=== PATIENT | male | born 1950 | race Caucasian/White ===

== ENCOUNTER 2017-01-22 10:18 | Observation (INO) ==
[2017-01-22] MEDS ORDERED: *HR* Heparin 5,000 UNIT/ML VIAL IVP ONE (10:29)
[2017-01-22] MEDS ORDERED: *HR* Heparin 5,000 UNIT/ML VIAL IVP PRN ×2 (10:29)
[2017-01-22] MEDS ORDERED: Aspirin 81 MG TAB.CHEW PO ONE (10:29)
[2017-01-22] MEDS ORDERED: Heparin 25,000 UNIT/500 ML D5W 25,000 UNIT/500 ML MLS IVC SCH (10:30)
--- NOTE | 2017-01-22 10:34 | Emergency Department Note ---
Disposition Clinical Impression: Unstable angina pectoris Disposition: Admitted As Inpatient Condition: Fair Forms: ED Satisfaction Letter Time of Disposition: 11:42 Chest Pain HPI - General Chief Complaint: ED Chest Pain Stated Complaint: CP Time Seen by Provider: 01/22/17 10:26 Source: patient, family Limitations: no limitations Vital Signs Reviewed: Yes Nursing Notes Reviewed: Yes - History of Present Illness HPI Narrative: 66-year-old with known coronary artery disease he's had exertional chest pain for the last couple of days. He was taking the trash out developed chest pain and rested for several minutes and went away. Today he was getting dressed and developed chest pain. He states currently his pain is good. The patient was seen by cardiology this morning Dr. Rodriguez who feels he has unstable angina and recommended starting heparin and admitting him to the hospitalist for further evaluation. 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 Onset: during exertion Pain Location: substernal, left chest Severity: now resolved Severity scale (1-10): 0 Quality: tightness, heaviness Pain Radiation: none Improves with: nitroglycerin Worsens with: exertion Associated symptoms: Denies: nausea, vomiting Treatments prior to arrival chest pain: aspirin, nitroglycerin - Related Data Allergies Allergy/AdvReac Type Severity Reaction Status Date / Time No Known Allergies Allergy Verified 01/22/17 10:21 Constitutional: Denies: fever, chills, weakness, weight change Eyes: Denies: eye pain, eye discharge, vision change ENT ED: Denies: ear pain, throat pain, dental pain, hearing loss, epistaxis, congestion, dysphagia Cardiovascular: Reports: chest pain. Denies: palpitations, dyspnea on exertion , edema, syncope Respiratory: Denies: cough, dyspnea, wheezes, hemoptysis, stridor Gastrointestinal: Denies: abdominal pain, nausea, vomiting, diarrhea, constipation, hematemesis, melena, hematochezia Genitourinary: Denies: urgency, dysuria, frequency, hematuria Musculoskeletal: Denies: back pain, neck pain, arthralgia, myalgia Integumentary: Denies: rash, abrasion, lesions Neurological: Denies: headache, weakness, numbness, paresthesias, confusion, abnormal gait, vertigo Psychiatric: Denies: anxiety, depression, suicidal thoughts, homicidal thoughts , auditory hallucinations, visual hallucinations Endocrine: Denies: fatigue Hematological/Lymphatic: Denies: easy bleeding, easy bruising Allergic/Immunologic: Denies: facial swelling, urticaria Chest Pain PMH - Past Medical History Medical history: Reports: COPD, hyperlipidemia, hypertension, myocardial infarction Psychiatric history: Reports: no psych history - Social History Smoking Status: Former smoker Alcohol use: Reports: none Drug use: Reports: unknown Physical Exam - General Limitations: no limitations General appearance: alert, in no apparent distress - Head Head exam: atraumatic, normocephalic, normal inspection - Eye Eye exam: Present: normal appearance, PERRL, EOMI - ENT ENT exam: normal exam, normal oropharynx, mucous membranes moist - Neck Neck exam: Present: normal inspection, full ROM, trachea midline - Chest Chest inspection: Present: normal inspection, symmetric chest wall rise - Respiratory Respiratory exam: Present: normal lung sounds bilaterally - Cardiovascular Cardiovascular exam: Present: regular rate, normal rhythm, normal heart sounds - Abdominal Exam Abdominal exam: Present: soft, Non-Tender. Absent: tenderness, distention, guarding, rebound, rigidity - Extremities Exam Extremities exam: Present: normal inspection, full ROM. Absent: tenderness, pedal edema - Expanded Lower Extremity Exam Neurovascular/Tendon exam: Absent: motor deficit, sensory deficit, tendon deficit Gait: observed and normal - Back Exam Back exam: Present: normal inspection, full ROM. Absent: tenderness - Neurological Exam Neurological exam: Present: alert, oriented X3 - Psychiatric Psychiatric exam: Present: normal affect, normal mood - Skin Skin exam: Present: warm, dry, intact, normal color Course - Consultations Consultation #1: I discussed the case with Dr. Rodriguez cardiology the patient has symptoms consistent with unstable angina and he would like the patient admitted heparinized. Time: 10:20 Consultation #2: Discussed with , admit. Time: 11:41 Vital Signs Temperature 98.1 F 01/22/17 10:22 Pulse Rate 52 01/22/17 10:22 Respiratory Rate 16 01/22/17 10:22 Blood Pressure 134/72 01/22/17 10:22 O2 Sat by Pulse Oximetry 97 01/22/17 10:22 Temperature 98.1 F 01/22/17 10:22 Pulse Rate 52 01/22/17 10:37 Respiratory Rate 16 01/22/17 10:22 Blood Pressure 134/72 01/22/17 10:37 O2 Sat by Pulse Oximetry 97 01/22/17 10:37 Oxygen Delivery Oxygen Delivery Room Air Chest Pain - Lab Data Result diagrams: 01/22/17 10:44 01/22/17 10:44 Lab Results 01/22/17 01/22/17 01/22/17 Range/Units 10:44 10:44 10:44 WBC 6.1 (4.3-11.1) K/mcL RBC 5.00 (4.19-5.50) M/mcL Hgb 14.7 (12.9-16.9) g/dL Hct 43.0 (37.5-50.1) % MCV 86.0 (83.0-100.0) fL MCH 29.4 (28.0-33.3) pg MCHC 34.2 (31.6-35.5) g/dL RDW 12.5 (11.5-14.5) % Plt Count 170 (140-400) K/mcL MPV 11.0 (9.4-12.4) fL Immature Gran % 0.5 (0-4) % Seg Neutrophils % 56.7 % Lymphocytes % 27.8 % Monocytes % 8.4 % Eosinophils % 5.6 % Basophils % 1.0 % Neutrophils # 3.5 (1.6-8.9) K/mcL Lymphocytes # 1.7 (0.6-4.6) K/mcL Monocytes # 0.5 (0.0-1.3) K/mcL Eosinophils # 0.3 (0.0-0.6) K/mcL Basophils # 0.1 (0.0-0.2) K/mcL PT 12.8 H (9.4-12.1) Seconds INR 1.2 APTT 34.1 (26.0-36.0) Seconds Sodium 139 (136-145) mEq/L Potassium 4.1 (3.5-4.5) mEq/L Chloride 108 (98-109) mEq/L Carbon Dioxide 24 (19-29) mEq/L BUN 19 (8-26) mg/dL Creatinine 0.76 (0.72-1.25) mg/dL Est GFR ( Amer) > 60 (> 60) Est GFR (Non-Af Amer) > 60 (> 60) BUN/Creatinine Ratio 25 (6-26) Glucose 109 H (70-99) mg/dL Calculated Osmolality 291 (280-300) Calcium 8.8 (8.6-10.8) mg/dL Troponin I (0-0.03) ng/mL 01/22/17 Range/Units 10:44 WBC (4.3-11.1) K/mcL RBC (4.19-5.50) M/mcL Hgb (12.9-16.9) g/dL Hct (37.5-50.1) % MCV (83.0-100.0) fL MCH (28.0-33.3) pg MCHC (31.6-35.5) g/dL RDW (11.5-14.5) % Plt Count (140-400) K/mcL MPV (9.4-12.4) fL Immature Gran % (0-4) % Seg Neutrophils % % Lymphocytes % % Monocytes % % Eosinophils % % Basophils % % Neutrophils # (1.6-8.9) K/mcL Lymphocytes # (0.6-4.6) K/mcL Monocytes # (0.0-1.3) K/mcL Eosinophils # (0.0-0.6) K/mcL Basophils # (0.0-0.2) K/mcL PT (9.4-12.1) Seconds INR APTT (26.0-36.0) Seconds Sodium (136-145) mEq/L Potassium (3.5-4.5) mEq/L Chloride (98-109) mEq/L Carbon Dioxide (19-29) mEq/L BUN (8-26) mg/dL Creatinine (0.72-1.25) mg/dL Est GFR ( Amer) (> 60) Est GFR (Non-Af Amer) (> 60) BUN/Creatinine Ratio (6-26) Glucose (70-99) mg/dL Calculated Osmolality (280-300) Calcium (8.6-10.8) mg/dL Troponin I 0.06 H* (0-0.03) ng/mL - EKG Data EKG attestation: Yes I reviewed and interpreted this EKG. EKG shows normal: sinus rhythm Rate: normal Rhythm: NSR Interpretation: no acute changes Heart Score - Score History: Highly Suspicious EKG: Normal Age: Greater than 65 Risk Factors: Equal/Greater than 3 risk factor or history of atherosclerotic disease Troponin: 1-3x normal limit HEART Score Total: 7 Critical Care Time Critical Care Time: Yes Total Critical Care Time: 30 Attestation: The high probability of a clinically significant, sudden or life threatening deterioration of the [cardiovascular] system(s) required my full and direct attention, intervention and personal management. The aggregate critical care time was [30] minutes. This time is in addition to time spent performing reported procedures but includes the following: [x] Data Review and interpretation [x] Patient assessment and monitoring of vital signs [x] Documentation [x] Medication orders and management
[2017-01-22 10:52] LABS: Basophils # 0.1 K/mcL (0.0-0.2); Eosinophils # 0.3 K/mcL (0.0-0.6); Eosinophils % 5.6 %; Hemoglobin 14.7 g/dL (12.9-16.9); Immature Granulocytes % 0.5 % (0-4); Lymphocytes # 1.7 K/mcL (0.6-4.6); Lymphocytes % 27.8 %; Mean Corpuscular HGB Conc 34.2 g/dL (31.6-35.5); Mean Corpuscular Hemoglobin 29.4 pg (28.0-33.3); Monocytes # 0.5 K/mcL (0.0-1.3); Monocytes % 8.4 %; Neutrophils # 3.5 K/mcL (1.6-8.9); Platelet Count 170 K/mcL (140-400); Red Cell Distribution Width 12.5 % (11.5-14.5); Segmented Neutrophils % 56.7 %
[2017-01-22 10:59] LABS: INR 1.2; Prothrombin Time 12.8 Seconds (9.4-12.1)
[2017-01-22 11:02] LABS: Activated Partial Thrombo Time 34.1 Seconds (26.0-36.0)
[2017-01-22 11:07] LABS: Calcium 8.8 mg/dL (8.6-10.8); Carbon Dioxide 24 mEq/L (19-29); Chloride 108 mEq/L (98-109); Glucose 109 mg/dL (70-99); Potassium 4.1 mEq/L (3.5-4.5); Sodium 139 mEq/L (136-145)
[2017-01-22 11:27] LABS: BUN/Creatinine Ratio 25 (6-26); Blood Urea Nitrogen 19 mg/dL (8-26); Osmolality,Calculated 291 (280-300); eGFR For African Americans > 60 (> 60); eGFR For Non-African Americans > 60 (> 60)
[2017-01-22] MEDS ORDERED: *HR* HYDROcodone/Acet 7.5/325 mg TABLET PO PRN (12:47)
[2017-01-22] MEDS ORDERED: Nitroglycerin 0.4 MG TAB.SUBL SL PRN (12:47)
[2017-01-22] MEDS ORDERED: Ipratropium/Albuterol Neb 3 ML IH PRN (12:50)
[2017-01-22] MEDS ORDERED: *HR* Morphine 2 MG/ML SYRINGE IVP PRN ×2 (12:51→12:59)
[2017-01-22] MEDS ORDERED: Ondansetron 4 MG/2 ML VIAL IVP PRN (12:51)
[2017-01-22] MEDS ORDERED: Acetaminophen 325 MG TABLET PO PRN (12:51)
[2017-01-22] MEDS ORDERED: Naloxone 0.4 MG/ML INJ IVP PRN (12:51)
--- NOTE | 2017-01-22 13:10 | Internal Med History&Physical ---
Date of Encounter: 01/22/17 Time of Encounter: 12:30 Internal Medicine - H&P: HPI Chief complaint: chest pain, SOB x 3-4 weeks Admitted From: Emergency Dept Plans for Post Hospital Care: Home History of present illness: Mr. Quesada is a 66 year old male with medical history significant for CAD s /p NH (inferior wall) presents with 3-4 weeks of exertional chest pain, that has progressively gotten worse. The last episode occurred yesterday when he tried to empty the garbage, a routine [facility] caused chest pain and SOB. tHE PAIN RESOLVED WITH REST. While he was taking a shower today, he has a recurrence of chest pain. Chest pain last 4-5 minutes. No associated nausea, vomiting, or diaphoresis. 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 He had cardiac catheterization in 2012 and 2013 leed to stent placement. LVEF has been preserved. Cardiac stress test in 2013, was ischemic. No other constitutional or systemic symptoms. He is FULL CODE as per discussion. He nominates his as his NOK/POA (Fiona Quesada). ROS: A 10-point ROS was performed, positives and relevant negatives are detailed , system-symptoms not mentioned assumed negative unless otherwise stated. Family history: Father: heart disease, lung tumors, mother; breast cancer, sister: jaw cancer, Vital Signs Temperature 98.1 F 01/22/17 10:22 Pulse Rate 52 01/22/17 10:22 Respiratory Rate 16 01/22/17 10:22 Blood Pressure 134/72 01/22/17 10:22 O2 Sat by Pulse Oximetry 97 01/22/17 10:22 Temperature 98.1 F 01/22/17 10:22 Pulse Rate 52 01/22/17 10:37 Respiratory Rate 16 01/22/17 10:22 Blood Pressure 134/72 01/22/17 10:37 O2 Sat by Pulse Oximetry 97 01/22/17 10:37 O/E: Not in distress, not ill or toxic looking HEENT: Not pale, anicteric, afebrile, acyanotic, non-tachypneic. Chest: CTAB, chest pain is not reproducible. Heart: RRR, HS1.2 no murmur Abdomen: soft, non-tender, no masses. BS+ : no flank tenderness, no CVA tenderness, no suprapubic tenderness. 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 Psychiatry: mood is good, affect is congruent, speech is normal. Thought process is logical and goal-directed. Extremities: No pedal edema, normal pedal edema, no calf tenderness. Lab Results 01/22/17 01/22/17 01/22/17 Range/Units 10:44 10:44 10:44 WBC 6.1 (4.3-11.1) K/mcL RBC 5.00 (4.19-5.50) M/mcL Hgb 14.7 (12.9-16.9) g/dL Hct 43.0 (37.5-50.1) % MCV 86.0 (83.0-100.0) fL MCH 29.4 (28.0-33.3) pg MCHC 34.2 (31.6-35.5) g/dL RDW 12.5 (11.5-14.5) % Plt Count 170 (140-400) K/mcL MPV 11.0 (9.4-12.4) fL Immature Gran % 0.5 (0-4) % Seg Neutrophils % 56.7 % Lymphocytes % 27.8 % Monocytes % 8.4 % Eosinophils % 5.6 % Basophils % 1.0 % Neutrophils # 3.5 (1.6-8.9) K/mcL Lymphocytes # 1.7 (0.6-4.6) K/mcL Monocytes # 0.5 (0.0-1.3) K/mcL Eosinophils # 0.3 (0.0-0.6) K/mcL Basophils # 0.1 (0.0-0.2) K/mcL PT 12.8 H (9.4-12.1) Seconds INR 1.2 APTT 34.1 (26.0-36.0) Seconds Sodium 139 (136-145) mEq/L Potassium 4.1 (3.5-4.5) mEq/L Chloride 108 (98-109) mEq/L Carbon Dioxide 24 (19-29) mEq/L BUN 19 (8-26) mg/dL Creatinine 0.76 (0.72-1.25) mg/dL Est GFR ( Amer) > 60 (> 60) Est GFR (Non-Af Amer) > 60 (> 60) BUN/Creatinine Ratio 25 (6-26) Glucose 109 H (70-99) mg/dL Calculated Osmolality 291 (280-300) Calcium 8.8 (8.6-10.8) mg/dL Troponin I (0-0.03) ng/mL 01/22/17 Range/Units 10:44 WBC (4.3-11.1) K/mcL RBC (4.19-5.50) M/mcL Hgb (12.9-16.9) g/dL Hct (37.5-50.1) % MCV (83.0-100.0) fL MCH (28.0-33.3) pg MCHC (31.6-35.5) g/dL RDW (11.5-14.5) % Plt Count (140-400) K/mcL MPV (9.4-12.4) fL Immature Gran % (0-4) % Seg Neutrophils % % Lymphocytes % % Monocytes % % Eosinophils % % Basophils % % Neutrophils # (1.6-8.9) K/mcL Lymphocytes # (0.6-4.6) K/mcL Monocytes # (0.0-1.3) K/mcL Eosinophils # (0.0-0.6) K/mcL Basophils # (0.0-0.2) K/mcL PT (9.4-12.1) Seconds INR APTT (26.0-36.0) Seconds Sodium (136-145) mEq/L Potassium (3.5-4.5) mEq/L Chloride (98-109) mEq/L Carbon Dioxide (19-29) mEq/L BUN (8-26) mg/dL Creatinine (0.72-1.25) mg/dL Est GFR ( Amer) (> 60) Est GFR (Non-Af Amer) (> 60) BUN/Creatinine Ratio (6-26) Glucose (70-99) mg/dL Calculated Osmolality (280-300) Calcium (8.6-10.8) mg/dL Troponin I 0.06 H* (0-0.03) ng/mL EKG: NSR, no acute changes. CXR: No acute cardiopulmonary finding IMP Unstable angina, Elevated troponin perhaps chronic (not prior values to compare): unstable angina Chronic morbidities HTN HLD CAD s/p NH COPD. PLAN Admit to observation IV heparin drip Nitroglycerin SL (used cautiously giving his history of inferior wall NH), Morphine 2 mg Q4H prn Consult cardiology, will need [facility] Continue other medications of chronic morbidities. I discussed my assessment with the patient, was at bedside, he verbalized understanding and is agreeable to admission. He is high risk given his symptoms , risk factors ad strong CAD history. Past Med Surg Social Fam HX - Past Medical History Medical history: COPD, hyperlipidemia, hypertension, myocardial infarction Psychiatric history: no psych history - Social History Smoking Status: Former smoker Smokeless Tobacco Status: No Alcohol use: none Drug use: none - Family History Father Living Status: Cause of : Lung ca Hx Family Cardiac Disorders: Yes Hx Family Respiratory Disorders: Yes Hx Family Cancer: Yes Hx Family GI Disorders: No Hx Family Genitourinary Disorders: No Hx Family Endocrine Disorder: Yes Hx Family Musculoskeletal Disorders: Yes Hx Family Neuromuscular Disorders: No Hx Family Neurologic Disorders: No Hx Family HEENT Disorders: No Hx Family Autoimmune Disorders: No Hx Family Reproductive Disorders: No Hx Family Psychosocial Disorders: No Hx Family Medical Disorders: No Internal Medicine - H&P: Meds Albuterol Sulfate [Proair Hfa] 2 puff IH Q4H PRN 01/22/17 [History] Aspirin 81 mg PO DAILY 01/22/17 [History] Clopidogrel [Plavix] 75 mg PO DAILY 01/22/17 [History] Cyanocobalamin (Vitamin B-12) [Vitamin B12] 1,000 mcg PO QWEEK 01/22/17 [History ] Furosemide [Lasix] 20 mg PO DAILY 01/22/17 [History] HYDROcodone/Acet 7.5/325 mg [Ramona 7.5-325 mg] 1 tab PO Q6H PRN 01/22/17 [ History] Isosorbide MONOnitrate [Isosorbide Mononitrate ER] 120 mg PO DAILY 01/22/17 [ History] Lisinopril [Zestril] 10 mg PO DAILY 01/22/17 [History] Meloxicam [Meloxicam] 15 mg PO DAILY 01/22/17 [History] Nitroglycerin [Nitrostat] 0.4 mg SL Q5M PRN 01/22/17 [History] Oxygen 2 l NS HS 01/22/17 [History] Propranolol LA (24 HR) [Inderal LA] 80 mg PO 3XW 01/22/17 [History] Tiotropium [Spiriva] 1 puff IH DAILY 01/22/17 [History] Allergies No Known Allergies Allergy (Verified 01/22/17 12:03) All Systems PM: A 10-system review of systems was performed and is negative for pertinent findings except as documented above in the HPI. - Constitutional Vitals: Temp Pulse Resp BP Pulse Ox 98.1 F 51 15 126/81 97 01/22/17 10:22 01/22/17 12:00 01/22/17 12:22 01/22/17 12:22 01/22/17 12:00 Internal Med - H&P Results - Labs CBC & Chem 7: 01/22/17 10:44 01/22/17 10:44
--- NOTE | 2017-01-22 13:34 | Cardiology Consult Note ---
<Michelle Walker Salbador - Last Filed: 01/22/17 13:49> Date of Encounter: 01/22/17 Time of Encounter: 13:10 Assessment and Plan (1) Unstable angina pectoris Current Visit: Yes Status: Acute Initial troponin 0.06. Chest pain free on exam. No acute ischemic changes noted. Recommended ED evaluation after being seen by Dr. Rodriguez this AM in clinic. Hx of CAD s/p PCI--most recent LHC in 2013 showed patent stents otherwise moderate, non-obstructive CAD. Alternatives, risks, and benefits of LHC with possible PCI discussed with patient; he is agreeable to proceed. Continue heparin gtt. Continue asa, statin, and betablocker. Keep NPO for LHC this afternoon. Discussion w patient/family: The assessment and plan as outlined above was discussed with the patient and/or family members who expressed understanding and agreement. All questions were answered. Thank you for involving us in the care of your patient. Please call with any questions. The patient will be discussed and reviewed with Dr. Altamirano; changes to be made accordingly. History of Present Illness Consult date: 01/22/17 Requesting physician: Gen Baker Consult reason: Elevated troponin Chief complaint: Chest pain History of present illness: Mr. Quesada is a 66 year old male with PMH significant for CAD s/p PCI, HTN , HLD, COPD who presented to the ED with complaints of mid-sternal chest discomfort with radiation down left arm that worsens with exertion and improves with rest that occurred yesterday evening while taking out the trash; he sat down and symptoms lasted for 2-3 minutes. He reports stable symptoms over the past 1+ year with pain improving only seconds after sitting down. Reports several month history of worsening shortness of breath with exertion and now with ordinary activity; also reports increased fatigue. Prior CV testing includes: C 07/25/14: Moderate CAD; EF 65%, previous stent in the mLAD with mild ISR ; previous stent in the pLCX patent Low level regadenoson 07/26/14: small sized, mild intensity mild anterolateral defect suggestive of ischemia, gated EF=68% [facility] 04/28/13: severe single vessel CAD, EF 65%, successful PTCA/ADELFO in the pLAD Past Med Surg Social Fam HX - Past Medical History Medical history: COPD, coronary artery disease, hyperlipidemia, hypertension, myocardial infarction Psychiatric history: no psych history - Past Surgical History Surgical History: angioplasty/stent - Social History Smoking Status: Former smoker (quit 15 years ago) Smokeless Tobacco Status: No Alcohol use: none Drug use: none - Family History Father Living Status: Cause of : Lung ca Hx Family Cardiac Disorders: Yes Hx Family Respiratory Disorders: Yes Hx Family Cancer: Yes Hx Family GI Disorders: No Hx Family Genitourinary Disorders: No Hx Family Endocrine Disorder: Yes Hx Family Musculoskeletal Disorders: Yes Hx Family Neuromuscular Disorders: No Hx Family Neurologic Disorders: No Hx Family HEENT Disorders: No Hx Family Autoimmune Disorders: No Hx Family Reproductive Disorders: No Hx Family Psychosocial Disorders: No Hx Family Medical Disorders: No Medications and Allergies Albuterol Sulfate [Proair Hfa] 2 puff IH Q4H PRN 01/22/17 [History] Aspirin 81 mg PO DAILY 01/22/17 [History] Clopidogrel [Plavix] 75 mg PO DAILY 01/22/17 [History] Cyanocobalamin (Vitamin B-12) [Vitamin B12] 1,000 mcg PO QWEEK 01/22/17 [History ] Furosemide [Lasix] 20 mg PO DAILY 01/22/17 [History] HYDROcodone/Acet 7.5/325 mg [[place] 7.5-325 mg] 1 tab PO Q6H PRN 01/22/17 [ History] Isosorbide MONOnitrate [Isosorbide Mononitrate ER] 120 mg PO DAILY 01/22/17 [ History] Lisinopril [Zestril] 10 mg PO DAILY 01/22/17 [History] Meloxicam [Meloxicam] 15 mg PO DAILY 01/22/17 [History] Nitroglycerin [Nitrostat] 0.4 mg SL Q5M PRN 01/22/17 [History] Oxygen 2 l NS HS 01/22/17 [History] Propranolol LA (24 HR) [Inderal LA] 80 mg PO 3XW 01/22/17 [History] Tiotropium [Spiriva] 1 puff IH DAILY 01/22/17 [History] Allergies No Known Allergies Allergy (Verified 01/22/17 12:03) All Systems Review: A 10-system review of systems was performed and is negative for pertinent findings except as documented above in the HPI. - Cardiovascular Cardiovascular: as per HPI Physical Examination Vital Signs, Last 4 Hours Temp Pulse Resp BP Pulse Ox 01/22/17 12:52 98.2 F 16 114/43 95 01/22/17 12:22 15 126/81 01/22/17 12:00 51 16 126/81 97 General: Conversant, No Apparent Distress HEENT: Atraumatic, Normocephaly, Mucus Membranes Moist Cardiac: Reg Rate and Rhythm, Normal S1 and S2 Lungs: Normal Breath Sounds Neuro: Alert and responsive Abdomen: Soft Skin: No rashes noted on visualized skin Musculoskeletal: No Chest Wall Tenderness Extremities: No Edema, Normal Pulses Results 01/22/17 10:44 01/22/17 10:44 Active Medications Acetaminophen (Tylenol) 650 mg PO Q6HR PRN PRN Reason: Mild Pain (1-3) Stop: 07/24/17 12:52 Acetaminophen/Hydrocodone Bitart ([place] 7.5-325 Mg) 1 tab PO Q6H PRN PRN Reason: Moderate Pain Stop: 07/24/17 12:48 Albuterol/Ipratropium (Duoneb) 3 ml IH [id number] PRN; Protocol PRN Reason: Shortness Of Breath/Wheezing Stop: 07/24/17 12:51 Aspirin (Aspirin) 81 mg PO DAILY SNEHA Stop: 07/25/17 09:01 Clopidogrel Bisulfate (Plavix) 75 mg PO DAILY SNEHA Stop: 07/25/17 09:01 Furosemide (Lasix) 20 mg PO DAILY SNEHA Stop: 07/25/17 09:01 Heparin Sodium (Porcine) (Heparin) 4,000 unit IVP Q6HR PRN PRN Reason: SEE COMMENTS Stop: 07/24/17 10:30 Heparin Sodium (Porcine) (Heparin) 2,000 unit IVP Q6H PRN PRN Reason: SEE COMMENTS Stop: 07/24/17 10:30 Heparin Sodium/Dextrose (Heparin 25,000 Unit/500 Ml D5w) 25,000 unit in 500 mls @ 23.514 mls/hr IVC .[id number] SNEHA; 12 UNIT/KG/HR PRN Reason: Protocol Stop: 07/24/17 10:31 Last Admin: 01/22/17 12:05 Dose: 12 unit/kg/hr, 23.514 mls/hr Isosorbide Mononitrate (Imdur) 120 mg PO DAILY [facility] Stop: 07/25/17 09:01 Lisinopril (Zestril) 10 mg PO DAILY SNEHA PRN Reason: Protocol Stop: 07/25/17 09:01 Metoprolol Tartrate (Lopressor) 12.5 mg PO BID [facility] Stop: 07/24/17 21:01 Morphine Sulfate (Morphine Sulfate) 2 mg IVP Q2HR PRN PRN Reason: Chest Pain Stop: 07/24/17 12:52 Naloxone HCl (Narcan) 0.4 mg IVP Q2MIN PRN PRN Reason: Opioid Reversal Stop: 07/24/17 12:52 Nitroglycerin (Nitroglycerin) 0.4 mg SL Q5M PRN PRN Reason: Chest Pain Stop: 07/24/17 12:48 Ondansetron HCl (Zofran) 4 mg IVP Q8HR PRN PRN Reason: Nausea And Vomiting Stop: 07/24/17 12:52 Tiotropium Peterson (Spiriva) 18 mcg IH DAILY SNEHA PRN Reason: Protocol Stop: 07/25/17 09:01 - Imaging and Cardiology Stress Test: report reviewed Cardiac cath: report reviewed - EKG Interpretation EKG results cardiology: personally reviewed Consult Discharge Plan - Plan Referrals: Preethi Galvan, [Primary Care Provider] - <Rubén Altamirano - Last Filed: 01/22/17 14:30> Date of Encounter: 01/22/17 Assessment and Plan Discussion w patient/family: The assessment and plan as outlined above was discussed with the patient and/or family members who expressed understanding and agreement. All questions were answered. Thank you for involving us in the care of your patient. Please call with any questions. History of Present Illness History of present illness: Mr. Quesada is a 66 year old male All Systems Review: A 10-system review of systems was performed and is negative for pertinent findings except as documented above in the HPI. Physical Examination Vital Signs, Last 4 Hours Temp Pulse Resp BP Pulse Ox 01/22/17 12:52 98.2 F 16 114/43 95 01/22/17 12:22 15 126/81 01/22/17 12:00 51 16 126/81 97 Results 01/22/17 10:44 01/22/17 10:44 - Attending Attestation I examined this patient and my medical decision-making was reviewed with the AFTERSCHOOL BABYSITTER/PA/Advanced Practice Nurse/Resident Physician. I agree with the documented findings, disposition and treatment plan as described except to the extent set forth below. pt has been having CP with exertion, pain is similar to previous cardiac pain presently pain free VSS JVD: 6-7 cm Chest : clear CVS: RRR EKG: no acute changes plan; Angio today cont home meds Thanks !
--- NOTE | 2017-01-22 15:02 | Pre-Sedation Evaluation ---
Pre-sedation evaluation - Pre-sedation checklist Date of procedure: 01/22/17 Procedure: [facility] Recent Vitals: Last Vital Signs Temp 98.2 F 01/22/17 12:52 Pulse 51 01/22/17 12:00 Resp 16 01/22/17 12:52 BP 114/43 01/22/17 12:52 Pulse Ox 95 01/22/17 12:52 H&P (including ROS) documented in medical record: Yes Previous reaction to sedatives/anesthetics: No Dietary Status: NPO after Midnight Airway Assessment: Patient can open mouth completely, TMJ function normal, Micrognathia (under-bite, receding chin) absent, Neck with adequate range of motion Dentition: No loose teeth or bridges Possible difficult airway: No ASA Classification *see protocol: CLASS II-Mild systemic disease Plan of Care: Pt appropriate candidate for procedure/moderate/conscious sedation , Risks/benefits of procedure/sedation discussed w/ patient/family
[2017-01-22] MEDS ORDERED: *HR* Heparin 10,000 UNIT/10 ML VIAL ONE (15:07)
[2017-01-22] MEDS ORDERED: 0.9 % Sodium Chloride 1,000 ML ONE (15:07)
[2017-01-22] MEDS ORDERED: Heparin 1,000 UNITS/500 mL NS 500 ML ONE (15:07)
[2017-01-22] MEDS ORDERED: Nitroglycerin 1,000 MCG/10 ML VIAL IV ONE (15:08)
[2017-01-22] MEDS ORDERED: *HR* FentaNYL (PF) 100 MCG/2 ML VIAL ONE (15:46)
[2017-01-22] MEDS ORDERED: *HR* Midazolam HCl 2 MG/2 ML VIAL ONE (15:46)
--- NOTE | 2017-01-22 16:35 | Invasive Diagnostic Lab Proc ---
Name: Kristian Quesada Date of Study: 01/22/2017 Date: 1950 Ht: 97.0in Medical Record#: [id number] Age: 66 Wt: 213.85lb Gender: Male BSA: 2.72 Order #: [id number] BMI: 15.98 Physicians Procedure Physician: Jaelyn Coronado MD, FACC Referring MD: Referring MD: Staff Name Position Time In Mariela Serrano RN Monitor 03:45 PM Britney Valadez RN Rn Hemodialysis Charge 03:46 PM Katherine William RT (R) Scrub 03:46 PM Indications Indication Unstable Angina Procedures Performed Procedure L HRT ARTERY/VENTRICLE ANGIO Pre-Procedure Checklist Informed consent is complete signed and on chart. H\\T\\P is on chart. ID band is on and ID verified with patient. Patient NPO for procedure The procedure was described for the patient and questions were answered. Blood Pressure: 114/43 ECG is on chart. Rhythm: Sinus Bradycardia Plan of Care Patient will tolerate the procedure without complications. Adequate level of comfort will be maintained. Hemodynamics will remain stable Patient will recover from procedure without complications. Respiratory function will be maintained. Cardiac rhythm will remain stable. Patient temperature will be maintained. Patient and/or family have verbalized understanding of the procedure. Patient Education Chief Complaint/Reason for Test: Cardiac Cath Developmental Category: Geriatric (65+ years) Developmentally Appropriate for Age: Yes Learning Barriers: None Education Needs: Procedure Education Method: Verbal Information Taught: Cardiac Cath Educational Evaluation: Able to repeat information Intravenous Access Time IV Size Location DC'd Fluid/Drip Rate Units RN 03:49 PM 18g 1 12/05" Patent On Arrival Rt Antecubital 0.9NaCl 25 ml/hr Britney Valadez RN Allergies No Known Allergies Vital Signs Time BP (mmHg) HR (bpm) O2 Sat. RR (bpm) LOC 03:50 PM 114 / 43 51 95 % 16 5 = Fully awake and oriented or at pre-proc level 03:50 PM / % 5 = Fully awake and oriented or at pre-proc level 03:50 PM / % 4 = Oriented but drowsy 03:45 PM 136 / 53 52 97 % 10 03:50 PM 124 / 69 51 97 % 14 03:55 PM 110 / 61 59 95 % 21 04:00 PM 121 / 68 58 92 % 24 04:05 PM 123 / 68 62 96 % 13 04:10 PM 115 / 65 68 93 % 13 04:15 PM 123 / 68 61 93 % 13 Procedural Medications Time Medication Dose Units Method Given By 03:47 PM Oxygen 2 L/min nasal cannula Britney Valadez RN 03:48 PM Versed 2 mg Intravenous Britney Valadez RN 03:48 PM Fentanyl 50 mcg Intravenous Britney Valadez RN 03:57 PM Lidocaine 2% 12 ml Subcutaneous Jaelyn Coronado MD, FACC 04:01 PM Oxygen 4 L/min nasal cannula Britney Valadez RN ASA Classification: CLASS II- Mild systemic disease (i.e. well-controlled diabetes, hypertension, asthma, cigarette smoking) Ruthie Score Preprocedure Postprocedure Activity 2- Moves 4 extremities sustained head lift Activity 2- Moves 4 extremities sustained head lift Circulation 2- SBP +/= 20 points of pre-anesthetic level Circulation 2- SBP +/= 20 points of pre-anesthetic level Consciousness 2- Awake and alert oriented x 3 Consciousness 2- Awake and alert oriented x 3 O2 Saturation 2- Able to maintain O2 satruation of 92% on room air O2 Saturation 2- Able to maintain O2 satruation of 92% on room air Respiratory 2- Able to deep breathe and cough well Respiratory 2- Able to deep breathe and cough well Total Score 10 Total Score 10 Contrast Agent: Isovue Diagnostic Contrast: 69 ml Total Contrast: 69 ml Fluoro Dose: 456 mGy Procedure Log Time Note Enter By 03:20 PM CathStat 03:44 PM Vitals capture started with the following parameters, Patient=Adult, Interval=5 min, Initial Rnvrhhns=688 mmHg, Deflation Rate=5 mmHg, Cuff placed on Right Arm 03:44 PM Recorded ECG: HR=51 Condition=Condition 1 03:45 PM HR=52 bpm, ZHQF=014/53 mmhg, SpO2=97.0 %, Resp=10 B/min, Comment=Sinus Audie 03:45 PM 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 well-controlled diabetes, hypertension, asthma, cigarette smoking) scoates 03:45 PM Meet and greet completed scoates 03:45 PM Sign in performed according to hospital policy. scoates 03:45 PM Procedure start 15:45 scoates 03:45 PM Mariela Serrano RN Position: Monitor Time in: 15:45 scoates 03:46 PM Britney Valadez RN Position: Rn Hemodialysis Charge Time in: 15:46 scoates 03:46 PM Katherine William RT (R) Position: Scrub Time in: 15:46 scoates 03:46 PM Patient charges- Angio tray pack, Navilyst 3mm J, Pulse Oximetry and ACIST tubing and transducer scoates 03:47 PM Case Delayed No scoates 03:47 PM Hair removed from procedure site in procedure lab using clippers. Bilateral groin prepped with Chloraprep by Katherine William RT (R) then patient draped. Skin intact. scoates 03:47 PM Time: 15:47 Oxygen on at 2 L/min per nasal cannula by Britney Valadez RN scoates 03:48 PM Time: 15:48 Versed 2 mg Intravenous Given by Britney Valadez RN scoates 03:48 PM Time: 15:48 Fentanyl 50 mcg Intravenous Given by Britney Valadez RN scoates 03:50 PM HR=51 bpm, PLGT=320/69 mmhg, SpO2=97.0 %, Resp=14 B/min, Comment=Sinus Audie 03:50 PM Time: 15:50 Patient comfortable and pain free: Yes [facility] 03:50 PM Time: 15:50LOC: 5 = Fully awake and oriented or at pre-proc level [facility] 03:53 PM Clinical Presentation: Non-STEMI [facility] 03:53 PM Pressure channel 1 zeroed. 03:55 PM HR=59 bpm, YZPQ=918/61 mmhg, SpO2=95.0 %, Resp=21 B/min, Comment=Sinus Audie 03:56 PM Time out performed according to hospital policy [facility] 03:57 PM Time: 15:57 12 ml Lidocaine 2% to right groin Subcutaneous Given by Jaelyn Coronado MD, [facility] 03:58 PM Access obtained by percutaneous puncture. 5Fr 10cm Terumo [place] sheath placed in right Femoral artery. [id number] [facility] 03:58 PM 5Fr FL 4 catheter inserted over the wire [facility] 03:59 PM LCA angiography performed in multiple views. lparsley 03:59 PM Recorded Pressure: Ao, HR=60, Condition=Condition 1 (Aorta) Ao 100/67/82 04:00 PM HR=58 bpm, STMN=975/68 mmhg, SpO2=92.0 %, Resp=24 B/min, Comment=Sinus Audie 04:00 PM Recorded Pressure: Ao, HR=59, Condition=Condition 1 (Aorta) Ao 101/67/82 04:01 PM Time: 16:01 Oxygen on at 4 L/min per nasal cannula by Britney Valadez RN lparsley 04:02 PM Catheter removed lparsley 04:02 PM 5Fr FR 4 catheter inserted over the wire [facility] lparsley 04:02 PM RCA angiography performed in multiple views. lparsley 04:03 PM Catheter removed lparsley 04:04 PM 5Fr Pigtail catheter inserted over the wire [facility] lparsley 04:04 PM Catheter selectively placed in left ventricle lparsley 04:04 PM Pressure channel 1 zero failed. 04:05 PM Pressure channel 1 zero failed. 04:05 PM Pressure channel 1 zeroed. 04:05 PM HR=62 bpm, BHMY=729/68 mmhg, SpO2=96.0 %, Resp=13 B/min, Comment=Sinus Audie 04:05 PM Recorded Pressure: LV, HR=63, Condition=Condition 1 (Left Ventricle) LV 87/5/6 04:05 PM Bolus angiogram of left Ventricle complete: 8 ml/sec for a total of 24 mls lparsley 04:05 PM Recorded Pressure: LV, Ao, HR=63, Condition=Condition 1 (Left Ventricle) LV 80/9/14, (Aorta) Ao 87/57/72 04:06 PM Time: 15:50LOC: 4 = Oriented but drowsy lparsley 04:06 PM Time: 15:50 Patient comfortable and pain free: Yes lparsley 04:06 PM Catheter removed lparsley 04:07 PM Bolus angiogram of right Femoral complete: 4 ml/sec for a total of 7 mls lparsley 04:07 PM Coronary Dominance: Left lparsley 04:07 PM Procedure completed at 16:07 lparsley 04:10 PM HR=68 bpm, YBVS=551/65 mmhg, SpO2=93.0 %, Resp=13 B/min, Comment=Sinus Audie 04:11 PM Sign out completed: Radiation Dose 455.65 mGy Fluoro Time: 1.6 Isovue 370 - 200ml contrast 69 ml given by Jaelyn Coronado MD, FACC. Complications: NoneCardiac Rehab Consult needed: NoConfirmed administered medications: Yes lparsley 04:11 PM Isovue 370 - 200ml,1 Bottle(s) used. lparsley 04:12 PM Arterial sheath pulled, Mynx closure device used and was Successful [id number] S/N. lparsley 04:12 PM Post ECG Sinus Bradycardia lparsley 04:12 PM Post Blood Pressure 115/65 lparsley 04:12 PM 16:12 Post Pulses Bilateral DP \\T\\ PT 2+ lparsley 04:12 PM Information taught Cardiac Cath and Mynx lparsley 04:12 PM Education needs Procedure, Plan of Care, and Safe \\T\\ Effective Use of Medications lparsley 04:12 PM Learning barriers :None lparsley 04:12 PM Education Methods Verbal lparsley 04:12 PM Education evaluation Able to repeat information lparsley 04:13 PM Site status No bleeding/hematoma - Rt Groin as reported by Katherine William RT (R) at 16:12 lparsley 04:13 PM Opsite applied lparsley 04:13 PM Report given to Carol ENGLAND Pt taken to 2A Room #47. 16:13 lparsley 04:13 PM Plavix, Effient or Brilinta given No lparsley 04:13 PM Delay to floor No lparsley 04:15 PM HR=61 bpm, PKGT=979/68 mmhg, SpO2=93.0 %, Resp=13 B/min, Comment=Sinus Audie 04:15 PM Patient out of room: 16:15 lparsley 04:16 PM Family placed in consult room. lparsley 04:16 PM Complications: None lparsley 04:18 PM Vitals capture stopped. 04:19 PM Fluoro Time: 1.6 lparsley 04:19 PM Isovue 370 - 200ml contrast 69 ml given by Jaelyn Coronado MD, FACC. lparsley 04:19 PM Radiation Dose 455.65 mGy lparsley 04:19 PM Lesion found in Proximal RCA. Pre Stenosis: 25 lparsley 04:20 PM Lesion found in Proximal LAD. Pre Stenosis: 20 lparsley 04:20 PM Lesion found in Mid LAD. Pre Stenosis: 15 lparsley 04:20 PM Lesion found in Proximal Circumflex. Pre Stenosis: 20 lparsley 04:20 PM Lesion found in Mid Circumflex. Pre Stenosis: 30 lparsley 04:20 PM Lesion found in Left PDA. Pre Stenosis: 30 lparsley 04:21 PM Proximal Left Anterior Descending Coronary Artery with 20% stenosis. lparsley 04:21 PM Mid/Distal Left Anterior Descending Coronary Artery and diagonal branches with 15% stenosis. lparsley 04:22 PM Circumflex, Obtuse Marginal, Left Posterior Descending, and Left Posterolateral Coronary Arteries with 30 % stenosis. lparsley 04:22 PM Right Coronary, Right Posterior Descending Arteries with Right Posterolateral and Acute Marginal branches with 25 % stenosis. lparsley Complications Complication None None Hemodynamics Pressures Site Systolic/A Wave Diastolic/V Wave Mean AO 100 67 82 AO 101 67 82 LV 87 5 6 LV 80 9 14 AO 87 57 72 Post Procedure Information Blood Pressure: 115/65 mmHg Rhythm: Sinus Bradycardia Post procedural instructions were given Closure Device Time Device Success/Fail 01/22/2017 4:23:00 PM MynxGrip Successful Site Checks Time Location Status Staff Sheath In? Note 04:12 PM Rt Groin No bleeding/hematoma Katherine William RT (R) Pulses Time Site Pre-Procedure Post-Procedure Note 01/22/2017 3:50:00 PM Bilateral radial 2+ 01/22/2017 3:50:00 PM Bilateral DP 2+ 4:12:00 PM Bilateral DP \\T\\ PT 2+ Updated by Mariela Serrano RN on 01/22/2017 4:27:10 PM electronically signed on 01/22/2017 4:29:10 PM with status of Final
--- NOTE | 2017-01-22 17:08 | Invasive Diagnostic Lab ---
Name: Kristian Quesada Date of Study: 01/22/2017 Date: 1950 Ht: 246.4 cm /97.0 in Medical Record#: [id number] Age: 66 Wt: 97. kg / 213.85 lb Account/Order#: [id number] Gender: Male BSA: 2.72 Order #: [id number] Fluoro Dose: 456 mGy BMI: 15.98 Procedure Physician: Jaelyn Coronado MD, FACC Referring MD: Referring MD: Procedures Performed: LEFT HEART CATH Indications: Unstable Angina Impressions: Double vessel coronary artery disease. The left ventricle is normal and has normal contractility EF 65% Stent placed from a prior procedure in the Mid LAD is patent. Stent placed from a prior procedure in the Proximal Circumflex is patent. Recommendations: Optimal medical therapy of patient's disease. Aggressive risk factor modification. History/Risk Factors: COPD CP Hypertension Dyslipidemia Chronic Lung Disease Previous PCI Procedure Access obtained in the right Femoral artery by percutaneous puncture Complications: None Contrast: Isovue 69ml Closure Device: MynxGrip Hemodynamics: Pressures Site Systolic/ A Wave Diastolic/ V Wave End Diastolic/ Mean HR AO 100 67 82 60 AO 101 67 82 59 LV 87 5 6 63 LV 80 9 14 63 AO 87 57 72 63 LV Ventriculography Ejection Method: LV Gram Ejection Fraction: 65% Wall Motion: SAUCEDA Anterobasal Normal Anterolateral Normal Apical: Normal Inferoapical Normal Inferobasal Normal Coronary Dominance: Left Lesion Findings/Interventions * Left Main Coronary Artery The LMCA is angiographically free of disease. * Left Anterior Descending The Mid LAD has patent stents present from a previous procedure. There is a 20% stenosis in the Proximal LAD. There is a 15% instent restenosis in the Mid LAD. * Circumflex The Proximal Circumflex has a patent stent present from a previous procedure. There is a 20% instent restenosis in the Proximal Circumflex. There is a 30% stenosis in the Mid Circumflex. There is a 30% stenosis in the Left PDA. * Right Coronary Artery There is a 25% stenosis in the Proximal RCA. Updated by Mareila Serrano RN on 01/22/2017 4:27:48 PM Jaelyn Coronado MD, FACC electronically signed on 01/22/2017 5:03:00 PM with status of Final
[2017-01-23 01:04] LABS: Basophils % 0.6 %; Eosinophils # 0.3 K/mcL (0.0-0.6); Eosinophils % 5.4 %; Hematocrit 36.4 % (37.5-50.1); Hemoglobin 12.6 g/dL (12.9-16.9); Immature Granulocytes % 0.4 % (0-4); Immature Platelets 5.5 % (1.1-6.1); Lymphocytes # 2.2 K/mcL (0.6-4.6); Lymphocytes % 45.2 %; Mean Corpuscular HGB Conc 34.6 g/dL (31.6-35.5); Mean Corpuscular Hemoglobin 29.8 pg (28.0-33.3); Mean Corpuscular Volume 86.1 fL (83.0-100.0); Mean Platelet Volume 11.5 fL (9.4-12.4); Monocytes # 0.5 K/mcL (0.0-1.3); Monocytes % 10.6 %; Neutrophils # 1.8 K/mcL (1.6-8.9); Platelet Count 142 K/mcL (140-400); Red Blood Count 4.23 M/mcL (4.19-5.50); Red Cell Distribution Width 12.6 % (11.5-14.5); Segmented Neutrophils % 37.8 %
[2017-01-23 03:31] LABS: BUN/Creatinine Ratio 29 (6-26); Blood Urea Nitrogen 23 mg/dL (8-26); Calcium 8.4 mg/dL (8.6-10.8); Carbon Dioxide 23 mEq/L (19-29); Chloride 108 mEq/L (98-109); Glucose 120 mg/dL (70-99); Osmolality,Calculated 295 (280-300); Potassium 3.6 mEq/L (3.5-4.5); Sodium 140 mEq/L (136-145); eGFR For African Americans > 60 (> 60); eGFR For Non-African Americans > 60 (> 60)
[2017-01-23 06:59] VITALS: BP 134/68
--- NOTE | 2017-01-23 08:19 | Discharge Summary ---
Date of Encounter: 01/23/17 Time of Encounter: 08:00 - Discharge Diagnosis (1) Unstable angina pectoris Priority: Primary Status: Acute (2) COPD (chronic obstructive pulmonary disease) Priority: Primary Status: Chronic Comments: Spiriva. oxygen 2L NC. pro-air prn 05/2016: CT chest mild emphysema. PFTs as outpatient Qualifiers: COPD type: unspecified COPD Qualified Code(s): J44.9 - Chronic obstructive pulmonary disease, unspecified (3) HTN (hypertension) Priority: Secondary Status: Chronic Comments: BP is adequate. Qualifiers: Hypertension type: essential hypertension Qualified Code(s): I10 - Essential (primary) hypertension (4) Chronic respiratory failure with hypoxia Priority: Secondary Status: Chronic Comments: 2L NC - Discharge Medications Prescriptions: Atorvastatin [Lipitor] 40 mg PO HS #30 tablet Metoprolol [Lopressor] 12.5 mg PO BID #60 tablet Ranolazine [Ranexa] 500 mg PO BID #30 tab.er.12h Home Medications: Albuterol Sulfate [Proair Hfa] 2 puff IH Q4H PRN 01/22/17 [History] Aspirin 81 mg PO DAILY 01/22/17 [History] Clopidogrel [Plavix] 75 mg PO DAILY 01/22/17 [History] Cyanocobalamin (Vitamin B-12) [Vitamin B12] 1,000 mcg PO QWEEK 01/22/17 [History ] Furosemide [Lasix] 20 mg PO DAILY 01/22/17 [History] HYDROcodone/Acet 7.5/325 mg [[place] 7.5-325 mg] 1 tab PO Q6H PRN 01/22/17 [ History] Isosorbide MONOnitrate [Isosorbide Mononitrate ER] 120 mg PO DAILY 01/22/17 [ History] Lisinopril [Zestril] 10 mg PO DAILY 01/22/17 [History] Nitroglycerin [Nitrostat] 0.4 mg SL Q5M PRN 01/22/17 [History] Oxygen 2 l NS HS 01/22/17 [History] Tiotropium [Spiriva] 1 puff IH DAILY 01/22/17 [History] Atorvastatin [Lipitor] 40 mg PO HS #30 tablet 01/23/17 [Rx] Metoprolol [Lopressor] 12.5 mg PO BID #60 tablet 01/23/17 [Rx] Ranolazine [Ranexa] 500 mg PO BID #30 tab.er.12h 01/23/17 [Rx] Allergies/Adverse Reactions: Allergies No Known Allergies Allergy (Verified 01/22/17 12:03) Procedures/tests Complete & Pending: Procedures Performed prior 72 hours Category Date Time Status CL Cardiac Catheterization [CL] Routine Screen Printing Paster 01/22/17 14:13 Completed ECG 12 lead ECG [ECG] AM 0600 Y 01/23/17 06:00 Ordered ECG 12 lead ECG [ECG] Routine Y 01/22/17 22:00 Ordered EV echocardiogram Routine Y 01/22/17 14:13 Completed Date of admission: 01/22/17 11:50 Primary care physician: Preethi Galvan DO Consults: 01/22/17 12:56 Consult to Cardiology [CONS] Routine Comment: Consulting Provider: Cardiology Carla Reason for Consult: unstable angina, elevated troponin (? chronic). Call Completed: No - Patient Status Disposition: Home, Self-Care Condition: Good Functional capacity at discharge: independent ambulation Overall status at discharge: patient is progressing back to baseline - Discharge Instructions Instructions: Left Heart Catheterization (DC) Follow Up With: Preethi Galvan DO [Primary Care Provider] - 01/25/17 10:45 am (f/u in 1 week ) Additional Instructions: RISK FACTORS: STOP SMOKING: If you smoke, STOP. Smoking or tobacco use significantly increases your risk of heart disease because nicotine causes the arteries to narrow or constrict. It also causes fats to stick to the artery. Your chances of having a heart attack are greatly increased if you continue to smoke. For more information, call the education line for smoking cessation 5-607-RLMIRTJ EAT A LOW FAT/CHOLESTEROL/SODIUM DIET: This diet may help reduce your chances of having a heart attack. LIFTING: Avoid lifting anything more than 10 pounds for 5-7 days Prior to straining, laughing, sneezing and/or coughing, apply manual pressure directly over insertion site. ACTIVITY: You may walk or climb stairs as tolerated You can resume sexual activity as tolerated In general, you are encouraged to engage in a minimum of 30 minutes or more of moderate intensity physical activity, such as brisk walking, daily or at least 3 -4 times weekly BATHING Do not submerge the site into water (bath tub, hot tub, swimming pool) for 1 week. This can be a source for infection into the blood stream. You may shower after 24 hours SITE CARE: After 24 hours, you may remove the dressing and leave the site open to air. Keep the site clean and dry. Clean gently and pat dry. You can expect bruising and tenderness that gradually resolve within a week or two. Return to work as instructed per your physician Resume driving as instructed per physician Keep all scheduled follow up appointments Resume medications as instructed IMPORTANT: If prescribed a Platelet Aggregation Inhibitor such as, Plavix, Brilinta or Effient: Duration of therapy is minimum one year These medications are often used in combination with Aspirin in prevention of future heart attacks Never discontinue unless consult with your Soliciting Freight Agent STROKE (CVA) Risk factors for a stroke are: Age, cigarette smoking, diabetes, excessive alcohol consumption, family history, high blood pressure, overweight, physical inactivity, prior stroke, heart attack, diagnosis of carotid artery stenosis or other artery disease. Warning signs: Sudden numbness or weakness of the face, arm or leg; especially on one side of the body, sudden confusion, trouble speaking or understanding, sudden trouble seeing in one or both eyes, sudden trouble walking, dizziness, loss of balance or coordination, sudden severe headache with no cause. Call 911 or go to the Emergency Room. CONGESTIVE HEART FAILURE: If you have been diagnosed with Congestive Heart Failure (CHF) and your symptoms return, make an appointment with your physician Weigh yourself daily. Notify your physician if you have a weight gain of two or more pounds in one day or five or more pounds in one week. If you experience any difficulty breathing, please call 911 BLEEDING: Although the risk of bleeding is minimal, it can happen. If you have any bleeding from the site, apply firm pressure above the puncture site for 10-15 minutes. If the bleeding does not stop, continue manual pressure and call 911 Contact your physician if: You develop a fever greater than 101 degrees Fahrenheit Your site becomes reddened or has any drainage You have an increase in pain or burning at the site or if a large knot forms at the site. If you experience chest pain, shortness of breath, dizziness, or extreme tiredness, stop the activity and rest. Please notify your physicians office if you experience any of these symptoms and they are not relieved by rest please call 911! - Diet and Activity Activity: resume usual activities as tolerated, wear oxygen at all times (2L ) Diet: low fat, low cholesterol Interval History: no chest pain Hospital course: Mr. Quesada is a 66 year old male with past medical history of CAD s/p inferior wall NV, COPD, and hypertension who was seen in our outpatient pulmonology clinic due to intermittent chest pain and dyspnea on exertion. He was referred to cardiology clinic and given clinical symptoms of unstable angina he was sent to our ED. Initial troponin 0.06. EKG with No acute ischemic changes. Patient underwent left heart catheterization 01/22 showing patent stents in mid LAD and proximal circumflex. LVEF 65%. Echocardiogram showed LVEF 60%, mild diastolic dysfunction of the left ventricle. Patient remained chest pain-free during this hospitalization. No telemetry events. Hemoglobin after LHC dropped to 12.6 from 14.7. Repeat hgb 8 hours later was 14.2. No signs of bleeding. PLAN: Stop Zocor. Start Lipitor and Ranexa. Continue Imdur, metoprolol, aspirin and Plavix. Follow-up in the cardiology clinic in 2 weeks. outpatient PFTs. - Time Spent with Patient Total time spent providing and/or coordinating discharge services: - Constitutional Vitals: Temp Pulse Resp BP Pulse Ox 97.9 F 52 16 134/68 93 L 01/23/17 06:58 01/23/17 06:58 01/23/17 06:58 01/23/17 06:58 01/23/17 06:58 General appearance: Present: cooperative, A&O X 3, pleasant, no acute distress, answers questions appropriately - Eye Eye exam: Present: PERRL, sclera anicteric - Neck Neck exam general surgery: Present: supple, trachea midline. Absent: lymphadenopathy - Respiratory Respiratory exam: Present: CTAB - Cardiovascular Cardiovascular exam: Present: RRR - GI/Abdominal GI/Abdominal exam: Present: normal bowel sounds, soft. Absent: distended, tenderness Additional comments: Right groin area show no hematoma, no bruit. Normal pedal pulses. - Extremities Exam Extremities exam: Present: normal inspection. Absent: pedal edema - Back Exam Back exam: Absent: CVA tenderness (L), CVA tenderness (R) - Neurological Exam Neurological exam: Present: alert, oriented X3, no focal deficits, strengths equal and symetr throughout. Absent: facial droop, speech deficit - Skin Skin exam: Present: intact
[2017-01-23] MEDS ORDERED: Isosorbide MONOnitrate (24 HR) 60 MG TAB.ER.24H PO SCH (09:00)
[2017-01-23] MEDS ORDERED: Aspirin 81 MG TAB.CHEW PO SCH (09:00)
[2017-01-23] MEDS ORDERED: Furosemide 20 MG TABLET PO SCH (09:00)
[2017-01-23] MEDS ORDERED: Tiotropium 18 MCG inhalation IH SCH (09:00)
--- NOTE | 2017-01-23 09:34 | ECHO - Doppler Report ---
Echocardiogram Name: Kristian Quesada Date of Study: 01/22/2017 Date: 1950 Ht: 71.0 in Medical Record#: [id number] Age: 66 Wt: 214.0 lb Gender: Male BSA: 2.17 Order #: [id number] Location: [facility] Room #: [facility] Reading Physician: Lila Thomas DO Can Maker: Neris Phillips Ordering Physician: Michelle Walker CNP Primary Physician: Preethi Galvan DO Indications: Unstable angina Impressions: LVEF 60%. Normal left ventricular size and systolic function. There is evidence of mild diastolic dysfunction of the left ventricle. Normal right ventricular size and function. No significant valvular dysfunction. No pulmonary hypertension. Left Ventricular Wall Motion: Rest Echo Findings All wall segments showed normal motion. Findings: Study Quality * Technically adequate exam. ECG Findings * Sinus bradycardia. Left Ventricle * LVEF 60%. * Normal LV chamber size, wall thickness and function. * Mild left ventricular diastolic dysfunction. Left Atrium * Normal left atrial size. Mitral Valve * Normal mitral valve structure. * No mitral regurgitation. * No mitral stenosis. Aortic Valve * No aortic regurgitation. * Trileaflet aortic valve. * Normal aortic valve structure. * No aortic stenosis. Tricuspid Valve * Tricuspid valve not well visualized. * Trace tricuspid regurgitation. Pulmonic Valve * Pulmonic valve is not well visualized. * No pulmonic stenosis. * No pulmonic regurgitation. Pulmonary Artery * Pulmonary artery not well visualized. Right Ventricle * Normal right ventricular structure and function. Right Atrium * Normal right atrial size. Interatrial Septum * Interatrial septum not well evaluated. IVC * The IVC is not well evaluated. Pericardium * There is no pericardial effusion present. Aorta * Normally sized aortic root. History Hypertension Hypercholesteremia Family History of CAD History of CAD/PTCA Myocardial Infarction 06/23/2014 a Previous Echo was performed. Measurements: BP: 113/ 64 2D Normal Values IVSd: 1.10 cm 0.6 - 1.0 cm LVIDd: 5.30 cm 3.7 - 5.6 cm LVPWd: .90 cm 0.6 - 1.1 cm LVIDs: 3.40 cm 1.5 - 3.6 cm AO: 2.80 cm < 4.0 cm LA: 3.50 cm 2.0 - 4.0cm %FS: 35.80 cm >25 % LA volume: 40 Mitral Valve Peak E:.64 m/sec Peak A:.65 m/sec E/A Ratio:1 Peak E' Lat Duncan:8.38 cm/s Peak E' Med Duncan:5.26 cm/s E/E' Lat Ratio:7.7 E/E' Med Ratio:12.2 Tricuspid Valve TV Regurg Peak Grad: 18.00mmHg TV Regurg Peak Duncan: 2.10m/sec Updated by Lila Thomas on 01/23/2017 9:30:26 AM electronically signed on 01/23/2017 9:31:11 AM with status of Final Wall Motion [place]: 1=Normal, 2=Hypokinesis, 3=Akinesis, 4=Dyskinesis, 5=Aneurysmal, 6=Hyperkinetic, X=Not Visualized (Blank)=Missing
[2017-01-23] MEDS ORDERED: Ranolazine 500 MG TAB.ER.12H PO SCH (10:15)
--- NOTE | 2017-01-23 11:06 | Cardiology Progress Note ---
Date of Encounter: 01/23/17 Time of Encounter: 10:40 Assessment and Plan (1) Unstable angina pectoris Current Visit: Yes Status: Acute Initial troponin 0.06. Chest pain free on exam. No acute ischemic changes noted. Recommended ED evaluation after being seen by Dr. Rodriguez this AM in clinic. LHC: patent stents, otherwise non-obstructive CAD. TTE: EF 60%, otherwise unremarkable. Will add Ranexa to see if improves symptoms. Continue asa, statin, plavix, nitrates, and betablocker. Rx for Ranexa electronically sent. Follow-up in 2-[address] Rodriguez, communicated with office. Discussion w patient/family: The assessment and plan as outlined above was discussed with the patient and/or family members who expressed understanding and agreement. All questions were answered. Thank you for involving us in the care of your patient. Please call with any questions. The patient will be discussed and reviewed with Dr. Altamirano; Cardiology will sign- off. Plan communicated with primary team. Subjective Principal diagnosis: Unstable angina Interval history: Seen and examined. Reviewed [facility] findings with patient. Denies events including chest pain/discomfort or dyspnea overnight. Objective General: Conversant, No Apparent Distress HEENT: Atraumatic, Normocephaly, Mucus Membranes Moist Cardiac: Reg Rate and Rhythm, Normal S1 and S2 Lungs: Normal Breath Sounds Neuro: Alert and responsive Abdomen: Soft Skin: No rashes noted on visualized skin Musculoskeletal: No Chest Wall Tenderness Extremities: No Edema, Normal Pulses Results 01/23/17 08:43 01/23/17 00:25 Lab Results 01/22/17 01/22/17 01/23/17 18:28 18:28 00:25 WBC Hgb Hct Plt Count APTT 33.7 Sodium Potassium Chloride Carbon Dioxide BUN Creatinine Glucose Calcium Troponin I 0.06 H* 0.05 H* 01/23/17 01/23/17 01/23/17 00:25 00:25 01:36 WBC 4.8 Hgb 12.6 L D 12.9 Hct 36.4 L Plt Count 142 APTT Sodium 140 Potassium 3.6 Chloride 108 Carbon Dioxide 23 BUN 23 Creatinine 0.79 Glucose 120 H Calcium 8.4 L Troponin I 01/23/17 08:43 WBC Hgb 14.2 Hct Plt Count APTT Sodium Potassium Chloride Carbon Dioxide BUN Creatinine Glucose Calcium Troponin I Active Medications Acetaminophen (Tylenol) 650 mg PO Q6HR PRN PRN Reason: Mild Pain (1-3) Stop: 07/24/17 12:52 Acetaminophen/Hydrocodone Bitart ([place] 7.5-325 Mg) 1 tab PO Q6H PRN PRN Reason: Moderate Pain Stop: 07/24/17 12:48 Albuterol/Ipratropium (Duoneb) 3 ml IH [id number] PRN; Protocol PRN Reason: Shortness Of Breath/Wheezing Stop: 07/24/17 12:51 Aspirin (Aspirin) 81 mg PO DAILY [facility] Stop: 07/25/17 09:01 Last Admin: 01/23/17 10:34 Dose: 81 mg Atorvastatin Calcium (Lipitor) 40 mg PO HS [facility] Stop: 07/25/17 21:01 Clopidogrel Bisulfate (Plavix) 75 mg PO DAILY [facility] Stop: 07/25/17 09:01 Last Admin: 01/23/17 10:43 Dose: 75 mg Furosemide (Lasix) 20 mg PO DAILY [facility] Stop: 07/25/17 09:01 Last Admin: 01/23/17 10:43 Dose: 20 mg Isosorbide Mononitrate (Imdur) 120 mg PO DAILY [facility] Stop: 07/25/17 09:01 Last Admin: 01/23/17 10:44 Dose: 120 mg Lisinopril (Zestril) 10 mg PO DAILY SNEHA PRN Reason: Protocol Stop: 07/25/17 09:01 Last Admin: 01/23/17 10:35 Dose: 10 mg Metoprolol Tartrate (Lopressor) 12.5 mg PO BID [facility] Stop: 07/24/17 21:01 Last Admin: 01/23/17 10:34 Dose: 12.5 mg Morphine Sulfate (Morphine Sulfate) 2 mg IVP Q2HR PRN PRN Reason: Chest Pain Stop: 07/24/17 12:52 Naloxone HCl (Narcan) 0.4 mg IVP Q2MIN PRN PRN Reason: Opioid Reversal Stop: 07/24/17 12:52 Nitroglycerin (Nitroglycerin) 0.4 mg SL Q5M PRN PRN Reason: Chest Pain Stop: 07/24/17 12:48 Ondansetron HCl (Zofran) 4 mg IVP Q8HR PRN PRN Reason: Nausea And Vomiting Stop: 07/24/17 12:52 Ranolazine (Ranexa) 500 mg PO BID SNEHA Stop: 07/25/17 10:16 Last Admin: 01/23/17 10:44 Dose: 500 mg Tiotropium [place] (Spiriva) 18 mcg IH DAILY SNEHA PRN Reason: Protocol Stop: 07/25/17 09:01 Last Admin: 01/23/17 10:43 Dose: 18 mcg - Imaging and Cardiology Echo: report reviewed Cardiac cath: report reviewed - EKG Interpretation EKG results cardiology: personally reviewed Consult Discharge Plan - Plan Instructions: Left Heart Catheterization (DC) Additional Instructions: RISK FACTORS: STOP SMOKING: If you smoke, STOP. Smoking or tobacco use significantly increases your risk of heart disease because nicotine causes the arteries to narrow or constrict. It also causes fats to stick to the artery. Your chances of having a heart attack are greatly increased if you continue to smoke. For more information, call the education line for smoking cessation 3-945-SBSOFEL EAT A LOW FAT/CHOLESTEROL/SODIUM DIET: This diet may help reduce your chances of having a heart attack. LIFTING: Avoid lifting anything more than 10 pounds for 5-7 days Prior to straining, laughing, sneezing and/or coughing, apply manual pressure directly over insertion site. ACTIVITY: You may walk or climb stairs as tolerated You can resume sexual activity as tolerated In general, you are encouraged to engage in a minimum of 30 minutes or more of moderate intensity physical activity, such as brisk walking, daily or at least 3 -4 times weekly BATHING Do not submerge the site into water (bath tub, hot tub, swimming pool) for 1 week. This can be a source for infection into the blood stream. You may shower after 24 hours SITE CARE: After 24 hours, you may remove the dressing and leave the site open to air. Keep the site clean and dry. Clean gently and pat dry. You can expect bruising and tenderness that gradually resolve within a week or two. Return to work as instructed per your physician Resume driving as instructed per physician Keep all scheduled follow up appointments Resume medications as instructed IMPORTANT: If prescribed a Platelet Aggregation Inhibitor such as, Plavix, Brilinta or Effient: Duration of therapy is minimum one year These medications are often used in combination with Aspirin in prevention of future heart attacks Never discontinue unless consult with your Basketball Referee STROKE (CVA) Risk factors for a stroke are: Age, cigarette smoking, diabetes, excessive alcohol consumption, family history, high blood pressure, overweight, physical inactivity, prior stroke, heart attack, diagnosis of carotid artery stenosis or other artery disease. Warning signs: Sudden numbness or weakness of the face, arm or leg; especially on one side of the body, sudden confusion, trouble speaking or understanding, sudden trouble seeing in one or both eyes, sudden trouble walking, dizziness, loss of balance or coordination, sudden severe headache with no cause. Call 911 or go to the Emergency Room. CONGESTIVE HEART FAILURE: If you have been diagnosed with Congestive Heart Failure (CHF) and your symptoms return, make an appointment with your physician Weigh yourself daily. Notify your physician if you have a weight gain of two or more pounds in one day or five or more pounds in one week. If you experience any difficulty breathing, please call 911 BLEEDING: Although the risk of bleeding is minimal, it can happen. If you have any bleeding from the site, apply firm pressure above the puncture site for 10-15 minutes. If the bleeding does not stop, continue manual pressure and call 911 Contact your physician if: You develop a fever greater than 101 degrees Fahrenheit Your site becomes reddened or has any drainage You have an increase in pain or burning at the site or if a large knot forms at the site. If you experience chest pain, shortness of breath, dizziness, or extreme tiredness, stop the activity and rest. Please notify your physicians office if you experience any of these symptoms and they are not relieved by rest please call 911! Referrals: Preethi Galvan DO [Primary Care Provider] - 01/25/17 10:45 am (f/u in 1 week ) Prescriptions: Atorvastatin [Lipitor] 40 mg PO HS #30 tablet Metoprolol [Lopressor] 12.5 mg PO BID #60 tablet Ranolazine [Ranexa] 500 mg PO BID #30 tab.er.12h
--- NOTE | 2017-01-25 16:05 | Electrocardiograph Report ---
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
== END 2017-01-23 11:14 | disposition home or self-care (01) ==
LOC: EMEROO 10:18 → 2ANU 10:18
PROVIDERS: ADMIT Internal Medicine; ATTEND Internal Medicine